=== PATIENT | female | born 1990 | race Caucasian/White ===

== ENCOUNTER 2022-08-29 12:46 | Inpatient (IN) | payer OTHER ==
[2022-08-29] MEDS ORDERED: Calcium Carbonate 500 MG Tab.Chew PO PRN (13:24)
[2022-08-29] MEDS ORDERED: Nalbuphine 10 MG/0.5 ML Syringe IVPUSH PRN (13:24)
[2022-08-29] MEDS ORDERED: Sodium Chloride 0.9% 10 ML Syringe FLUSH PRN (13:24)
[2022-08-29] MEDS ORDERED: Ondansetron 4 MG/2 ML SDV IVPUSH PRN (13:24)
[2022-08-29] MEDS ORDERED: Oxytocin/Lactated Ringers 10 UNIT/1,000 ML BAG IV SCH ×2 (13:30)
[2022-08-29] MEDS: Lactated Ringers 1,000 ML IV SCH ×4 (14:45→20:09)
[2022-08-29] MEDS ORDERED: diphenhydrAMINE 50 MG/ML SDV IVPUSH PRN (14:57)
[2022-08-29] MEDS ORDERED: ePHEDrine 50 MG/ML SDV IVPUSH PRN (14:57)
[2022-08-29] MEDS: fentaNYL 100 MCG/2 ML SDV EPIDUR PRN ×2 (15:12→20:30)
[2022-08-29] MEDS: Bupivacaine/fentaNYL/NS 100 ML Bag EPIDUR PRN ×2 (15:13→20:30)
[2022-08-29] MEDS ORDERED: Sodium Chloride 0.9% 10 ML Syringe FLUSH SCH (21:00)
[2022-08-30] MEDS ORDERED: Bupivacaine 0.25% 10 ML SDV ONE ×2
[2022-08-30] MEDS: Bupivacaine/fentaNYL/NS 100 ML Bag EPIDUR PRN (00:32)
[2022-08-30] MEDS ORDERED: Benzocaine/Menthol 20%-0.5% Spray 78 GM Cannister TOP PRN (09:26)
[2022-08-30] MEDS ORDERED: Magnesium Hydroxide 400 MG/5 ML Susp 30 ML Cup PO PRN (09:26)
[2022-08-30] MEDS ORDERED: Witch Hazel Medicated Pads 40/Jar TOP PRN (09:26)
[2022-08-30] MEDS ORDERED: Oxytocin/Lactated Ringers 10 UNIT/1,000 ML BAG IV SCH (09:26)
[2022-08-30] MEDS ORDERED: Hydrocortisone Acetate 25 MG Supp RECTAL PRN (09:26)
[2022-08-30] MEDS: Prenatal Multivitamin with Calcium/Folic Acid/Iron Tab PO SCH (10:23)
[2022-08-30] MEDS: Ibuprofen 600 MG Tab PO PRN ×2 (10:24→17:01)
[2022-08-30] MEDS: Docusate Sodium 100 MG Cap PO PRN (10:24)
[2022-08-30] MEDS: Acetaminophen 325 MG Tab PO PRN (16:15)
[2022-08-31] MEDS: Ibuprofen 600 MG Tab PO PRN ×2 (02:05→08:07)
[2022-08-31] MEDS: Acetaminophen 325 MG Tab PO PRN ×2 (02:06→08:08)
[2022-08-31] MEDS: Docusate Sodium 100 MG Cap PO PRN (08:07)
[2022-08-31] MEDS: Prenatal Multivitamin with Calcium/Folic Acid/Iron Tab PO SCH (08:08)
[2022-08-31 08:30] VITALS: BP 111/62; PULSE 86
== END 2022-08-31 14:20 | disposition home or self-care (01) | DRG 807 ==
LOC: JD.OBCHECK 12:46 → JD.OB 13:01 → JD.OBCHECK 17:27 → JD.OB 17:28 → OBSVTOIN 08-30 04:43 → JD.OB 08-30 04:44
PROVIDERS: ADMIT Obstetrics & Gynecology; ATTEND Obstetrics & Gynecology
PROC: 10D07Z6 Extraction of Products of Conception, Vacuum, Via Natural or Artificial Opening (ICD-10-PCS; principal; 2022-08-30)
PROC: 0KQM0ZZ Repair Perineum Muscle, Open Approach (ICD-10-PCS; 2022-08-30)
PROC: 10907ZC Drainage of Amniotic Fluid, Therapeutic from Products of Conception, Via Natural or Artificial Opening (ICD-10-PCS; 2022-08-30)
PROC: 3E0R3BZ Introduction of Anesthetic Agent into Spinal Canal, Percutaneous Approach (ICD-10-PCS; 2022-08-30)
PROC: 00HU33Z Insertion of Infusion Device into Spinal Canal, Percutaneous Approach (ICD-10-PCS; 2022-08-30)
DX: O99.52 Diseases of the respiratory system complicating childbirth (principal); Z37.0 Single live birth; Z3A.38 38 weeks gestation of pregnancy; O70.1 Second degree perineal laceration during delivery; O99.214 Obesity complicating childbirth; O99.344 Other mental disorders complicating childbirth; F41.9 Anxiety disorder, unspecified; E66.9 Obesity, unspecified; J45.909 Unspecified asthma, uncomplicated
CPT/HCPCS: 36415; 51701; 51702; 59025; 59409; 59414; 85025; 86592; A9270-GY; J2590; J3010; J3490; J7120